=== PATIENT | male | born 1990 | race Hispanic/Latino ===

== ENCOUNTER 2023-08-04 19:02 | Emergency (ER) | payer OTHER ==
[~2023-08-04] VITALS: Ht 172.7 cm; Wt 78.9 kg
[2023-08-04] MEDS ORDERED: IBUP-2070 PO (23:50)
[2023-08-04 23:51] VITALS: BP 128/73; PULSE 69; RESP 16; O2SAT 98
== END 2023-08-04 23:56 | disposition home or self-care (01) ==
LOC: EDH 19:02
DX: S29.012A Strain of muscle and tendon of back wall of thorax, initial encounter (principal); V89.2XXA Person injured in unspecified motor-vehicle accident, traffic, initial encounter; Y93.89 Activity, other specified; Y92.89 Other specified places as the place of occurrence of the external cause; Y99.8 Other external cause status
CPT/HCPCS: 72070